=== PATIENT | male | born 1950 | race Caucasian/White ===

== ENCOUNTER 2023-06-29 10:46 | Emergency (ER) | payer MEDICARE, OTHER ==
--- NOTE | 2023-06-29 13:18 | ED Physician Documentation ---
History of Present Illness - Stated complaint Stated Complaint: RT HAND INJ - Chief complaint Chief Complaint: Laceration - History obtained from History obtained from: Patient - History of Present Illness Timing: Today Pain level max: 5 Pain level now: 5 - Additonal information Additional information: 72-year-old male presents to the emergency department with a right thumb injury. He states he was hitching a trailer when the halley gave way landing on his right thumb. Unknown last tetanus shot. Patient is right-handed. Visiting from [place]. No numbness or tingling. Worse with moving, better with rest. Review of Systems Constitutional: denies: Fever, Chills GI: denies: Vomiting, Diarrhea PD PAST MEDICAL HISTORY - Past Medical History Past Medical History: Yes Cardiovascular: High cholesterol Endocrine/Autoimmune: Other - Past Surgical History Past Surgical History: No - Present Medications Home Medications: Ambulatory Orders Medication Instructions Recorded Confirmed Adalimumab [Humira(Cf) Pen] 40 mg SUBQ ONCE 06/29/23 06/29/23 Rosuvastatin Calcium [Crestor] 20 mg PO DAILY 06/29/23 06/29/23 cephALEXin [Keflex] 500 mg PO Q6H #40 cap 06/29/23 - Allergies Allergies/Adverse Reactions: Allergies Allergy/AdvReac Type Severity Reaction Status Date / Time No Known Drug Allergies Allergy Verified 06/29/23 11:08 - Social History Does the pt smoke?: No Smoking Status: Never smoker Does the pt drink ETOH?: Yes Does the pt have substance abuse?: No - Immunizations Immunizations are current?: No Immunizations: TDAP >10years/unknown PD ED PE NORMAL - Vitals Vital signs reviewed: Yes - General General: Alert and oriented X 3, No acute distress - HEENT HEENT: Moist mucous membranes - Neck Neck: Supple, no meningeal sign - Cardiac Cardiac: RRR - Respiratory Respiratory: No respiratory distress, Clear bilaterally - Derm Derm: Warm and dry - Extremities Extremities: Other (Right hand - Swelling over the proximal phalanx of the right thumb. There is a laceration near the base of the proximal phalanx, approximately 2 cm in length, linear, subcutaneous. Neurovascular intact. Tendons intact. Otherwise normal exam of the right hand/wrist) - Neuro Neuro: Alert and oriented X 3 - Psych Psych: Normal mood, Normal affect Results - Vitals Vitals: Vital Signs - 24 hr 06/29/23 06/29/23 11:03 13:27 Temperature 36.7 C 36.4 C L Heart Rate 74 60 Respiratory 16 20 Rate Blood Pressure 162/88 H 139/84 H O2 Saturation 98 100 - Rads (name of study) Right hand x-ray Relevant Findings:: Final report received, See rad report Procedures - Laceration (location) Right thumb Length in cm: 2 Wound type: Linear, Into subcut fat, Clean Neurovascular status: Sensory intact, Motor intact, Vascular intact Tendon involvement: Tendon intact Anesthesia: Lidocaine 1% Wound preparation: Irrigated copiously NS (500ml), Wound explored, To the base Skin layer closure: Nylon, Interrupted, Size #-0 - enter number (4) Other: Patient tolerated well, No complications, Neurovascular intact, Dressing applied, Tetanus booster given PD Medical Decision Making - ED course Complexity details: reviewed results, re-evaluated patient, considered differential, d/w patient, d/w food consultant ED course: 72-year-old male with a right thumb laceration after crush injury with a trailer hitch. The laceration was repaired. Tolerated well. Has a comminuted intra- articular first proximal phalanx fracture of the right thumb on x-ray. Discussed the case with Dr. Mendoza, orthopedics who reviewed the images. Recommends irrigating the wound well prior to closure, starting on Keflex, splinting the area and follow-up with his orthopedist of choice when he returns home to [place] today. Patient declines pain medication here or for home. Given the first dose of Keflex here as well as a Tdap. We will give him a prescription for Keflex to take with him to fill when he gets home today. Patient was placed into a Velcro thumb spica so that wound care can still be performed. The Velcro thumb spica extends past the IP joint. Patient counseled regarding signs and symptoms for which I believe and urgent re-evaluation would be necessary. Patient with good understanding of and agreement to plan and is comfortable going home at this time This document was made in part using voice recognition software. While efforts are made to proofread this document, sound alike and grammatical errors may occur. Departure - Departure Disposition: 01 Home, Self Care Clinical Impression: Laceration of right thumb Qualifiers: Encounter type: initial encounter Damage to nail status: without damage Foreign body presence: without foreign body Qualified Code(s): S61.011A - Laceration without foreign body of right thumb without damage to nail, initial encounter Fracture of thumb, right open Qualifiers: Encounter type: initial encounter Phalanx: proximal Fracture alignment: nondisplaced Qualified Code(s): S62.514B - Nondisplaced fracture of proximal phalanx of right thumb, initial encounter for open fracture Condition: Good Instructions: ED Fx Hand Open Follow-Up: Provider,Other [Primary Care Provider] - Prescriptions: cephALEXin [Keflex] 500 mg PO Q6H #40 cap Comments: You have been given a prescription for Keflex today. Please take all antibiot ics until gone. The stitches will need to be removed in approximately 10 to 14 days. This can be done with your doctor and/or orthopedist. You do have a fracture of the proximal phalanx of your right thumb. Please stay in the thumb spica as this heals. We have placed you in a Velcro thumb spica so that you can continue to monitor the wound for healing and infection as well. Please go to your nearest emergency department if you notice increased redness, swelling or drainage from the wound. Forms: PCP List Discharge Date/Time: 06/29/23 13:36
[2023-06-29] MEDS: BACITRACIN ZINC OINT 1 PACKET TOP STA (13:23)
[2023-06-29] MEDS: cephALEXin 250 MG CAPSULE PO STA (13:30)
[2023-06-29] MEDS: TETANUS/DIPHTHERIA/PERTUSSIS 0.5 ML SYRINGE IM ONE (13:31)
[2023-06-29 13:37] VITALS: BP 139/84; O2SAT 100
--- NOTE | 2023-06-29 13:44 | XRAY Report ---
PROCEDURE: Hand 3+V RT INDICATIONS: trailer vs hand TECHNIQUE: 3 view(s) of the hand(s) acquired. COMPARISON: None FINDINGS: Bones: Oblique comminuted first proximal phalangeal fracture with interphalangeal joint involvement Soft tissues: No suspicious soft tissue calcifications. IMPRESSION: Comminuted intra-articular first proximal phalangeal fracture Reviewed by: Donald Cobos MD on 06/29/2023 12:42 PM [facility] Approved by: Donald Cobos MD on 06/29/2023 12:42 PM [facility] Station ID: [id number]
== END 2023-06-29 13:36 | disposition home or self-care (01) ==
LOC: ED 10:46
DX: S62.514B Nondisplaced fracture of proximal phalanx of right thumb, initial encounter for open fracture (principal); W23.1XXA Caught, crushed, jammed, or pinched between stationary objects, initial encounter; E78.00 Pure hypercholesterolemia, unspecified; Z23 Encounter for immunization
CPT/HCPCS: 12001; 73130; 90471; 90715; 99283; 99284; A9270